=== PATIENT | female | born 1970 | race Caucasian/White ===

== ENCOUNTER → 2019-10-29 11:10 | Outpatient (BNVA) | payer OTHER, SELFPAY | PROVIDERS: Family Provider Family Medicine; PCP Registered Nurse; Referring Provider Registered Nurse; Visit Provider Specialist | DX: M25.562 Pain in left knee (principal) | CPT/HCPCS: 73560; 73565 ==

== ENCOUNTER 2019-12-07 12:38 | Outpatient (CLI) | payer OTHER, SELFPAY ==
--- NOTE | 2019-12-07 12:49 | MR_ITS ---
WS: [id number] MRI of the left knee, 12/07/2019 Clinical Data: LEFT KNEE PAIN Comparison: None. Findings: The examination was done with and without interarticular gadolinium contrast. The anterior and posterior cruciate ligaments are intact without tear. The medial and lateral meniscu s show no tears. There are no bone bruises present. There are no osteochondral fractures. The medial and lateral collateral ligaments are intact without strain or tear. The quadriceps tendon and patellar tendon show no abnormalities. The patella is intact without displacement or chondromalac ia. No Ferrell's cyst is seen. MR/MR knee LT wo/w con [id number] Impression: 1. Negative for ligamentous or meniscal tears. 2. Negative for bone bruise or osteochondral fracture.
--- NOTE | 2019-12-07 12:55 | IR_ITS ---
WS: [id number] Injection of gadolinium for MRI of the left knee, 12/07/2019 Clinical Data: PAIN IN LEFT KNEE Comparison: Left knee, 10/29/2019 Fluoroscopy time: 0.1 minutes. Findings: With the usual technique the medial aspect of the left knee was cleansed with iodine. Then a 30-gauge needle was used to infiltrate the skin of the medial knee with 5 mL of 1% lidocaine. Then a 20-gauge needle was utilized to inject 2 mL of Omnipaque into the left knee joint. Then 30 mL of a mixture of gadolinium and saline were injected to fill the joint space. IR/[place] [id number] Impression: Satisfactory injection of mixture of gadolinium and saline to fill the left kne e joint.
[2019-12-07] MEDS: iohexol 240 mg/mL 50 mL Btl INTRA-ARTI (14:04)
== END 2019-12-07 12:39 | disposition home or self-care (01) ==
LOC: RADWPI 12:45
PROVIDERS: Family Provider Family Medicine; PCP Registered Nurse; Visit Provider Specialist
DX: M25.562 Pain in left knee (principal)
CPT/HCPCS: 27369; 73723; 77002; A9579

== ENCOUNTER 2019-12-25 11:05 | Outpatient (CLI) | payer OTHER, SELFPAY ==
[2019-12-25 11:44] LABS: Basophils % 0.3 %; Eosinophils # 0.1 10^3/uL (0.0-0.8); Eosinophils % 1.7 %; Hemoglobin 15.2 g/dL (11.5-15.3); Lymphocytes # 3.2 10^3/uL (0.8-4.8); Lymphocytes % 45.3 %; Mean Corpuscular Hemoglobin 30.8 pg (28.0-34.0); Mean Corpuscular Volume 93.3 fL (81-99); Mean Platelet Volume 9.3 fL (7.4-10.4); Monocytes # 0.6 10^3/uL (0.2-0.9); Monocytes % 7.9 %; Neutrophils # 3.2 10^3/uL (1.8-7.7); Neutrophils % 44.7 %; Nucleated Red Blood Cells % 0 %; Platelet Count 221 10^3/cmm (130-400); Red Blood Count 4.93 10^6/uL (4.1-5.3); Red Cell Distribution Width 12.5 % (12.1-15.1); White Blood Count 7.1 10^3/uL (4.0-10.0)
[2019-12-25 12:03] LABS: C Reactive Protein 1.9 mg/L (0.0-4.9); Glomerular Filtration Rate 76.9 mL/min (90-130)
[2019-12-25 12:30] LABS: Erythrocyte Sedimentation Rate 11 mm/hr (0-15)
[2019-12-25 12:33] LABS: Hepatitis A Antibody IgM. Non-Reactive (Nonreactive); Hepatitis B Surface AB. 5.4 (0-8.5); Hepatitis B Surface Antigen. Non-Reactive (Nonreactive); Hepatitis C Virus Antibody Non-Reactive (Nonreactive)
== END 2019-12-25 11:06 | disposition home or self-care (01) ==
LOC: LAB 11:08
PROVIDERS: Family Provider Family Medicine; PCP Registered Nurse; Visit Provider Specialist
DX: M19.90 Unspecified osteoarthritis, unspecified site (principal)
CPT/HCPCS: 82565; 85025; 85651; 86140; 86431; 86705; 86706; 86709; 86803; 87340

== ENCOUNTER → 2020-08-26 11:46 | Outpatient (BNVA) | payer SELFPAY | PROVIDERS: Family Provider Family Medicine; PCP Registered Nurse | DX: R35.0 Frequency of micturition (principal); N39.0 Urinary tract infection, site not specified; R31.9 Hematuria, unspecified | CPT/HCPCS: 81000 ==

== ENCOUNTER 2021-03-10 09:03 | Outpatient (CLI) | payer OTHER, SELFPAY ==
[2021-03-10 09:31] LABS: Add Urine Microscopic? NO; Charge for UA Resulting for Rev
[2021-03-10 10:08] LABS: Bilirubin Urine Neg (Negative); Blood Urine Neg (Negative); Glucose Urine UA 4+ (Normal); Ketones Urine Negative (Negative); Leukocyte Esterase Urine Negative (Negative); Nitrate Urine Negative (Negative); Protein Urine Neg (Negative); Specific Gravity, Urine 1.015 (1.005-1.030); Urine Appearance Clear (CLEAR); Urine Color Yellow (Yellow); Urobilinogen Urine Norm (Negative); pH Urine 5 (5-7)
[2021-03-10 10:15] LABS: Alanine Aminotransferase 93 U/L (0-33); Albumin Level 3.9 g/dL (3.5-5.2); Alkaline Phosphatase 82 IU/L (35-105); Anion Gap 13.8 (5-19); Aspartate Amino Transferase 101 U/L (0-32); Blood Urea Nitrogen 12 mg/dL (6-20); Calcium 8.7 mg/dL (8.5-10.5); Carbon Dioxide 26 mmol/L (22-29); Chloride 97 mmol/L (98-107); Globulin 2.5 g/dL (1.3-4.6); Glomerular Filtration Rate 89.3 mL/min (90-130); Glucose 367 mg/dL (65-115); Osmolality Calculated 291 mOsm/kg (285-295); Potassium 3.8 mmol/L (3.5-5.1); Sodium 133 mmol/L (136-145); T3 Free 2.2 PG/ML (2.0-4.4); Thyroid Stimulating Hormone 9.25 uIU/mL (0.27-4.20); Total Bilirubin 0.6 mg/dL (0.15-1.2); Total Protein 6.4 g/dL (6.6-8.7)
[2021-03-11 07:53] LABS: T4 Total 5.3 mcg/dL (5.1-11.9)
== END 2021-03-10 09:04 | disposition home or self-care (01) ==
LOC: LAB 09:06
PROVIDERS: PCP Registered Nurse; Visit Provider Family Medicine
DX: E11.9 Type 2 diabetes mellitus without complications (principal); E03.9 Hypothyroidism, unspecified
CPT/HCPCS: 36415; 80053; 81003; 84436; 84443; 84481

== ENCOUNTER → 2021-07-17 10:59 | Outpatient (BNVA) | payer OTHER, SELFPAY | PROVIDERS: PCP Registered Nurse; Referring Provider Nurse Practitioner; Visit Provider Internal Medicine | DX: E11.42 Type 2 diabetes mellitus with diabetic polyneuropathy (principal); E03.9 Hypothyroidism, unspecified; E66.9 Obesity, unspecified; Z68.36 Body mass index [BMI] 36.0-36.9, adult; Z79.84 Long term (current) use of oral hypoglycemic drugs | CPT/HCPCS: 99204 ==

== ENCOUNTER → 2021-07-20 08:06 | Outpatient (BNVA) | payer BC, SELFPAY | PROVIDERS: PCP Registered Nurse; Referring Provider Registered Nurse; Visit Provider Specialist | DX: G56.22 Lesion of ulnar nerve, left upper limb (principal); R20.0 Anesthesia of skin; Z87.891 Personal history of nicotine dependence | CPT/HCPCS: 95908 ==

== ENCOUNTER → 2021-07-22 11:43 | Outpatient (BNVA) | payer BC, SELFPAY | PROVIDERS: PCP Registered Nurse; Visit Provider Nurse Practitioner Family | DX: Z20.822 Contact with and (suspected) exposure to COVID-19 (principal) | CPT/HCPCS: 87426 ==

== ENCOUNTER 2021-09-25 11:49 | Outpatient (CLI) | payer BC, SELFPAY ==
[2021-09-25 12:57] LABS: Cortisol Random 9.68 ug/dL (2.47-19.5)
[2021-09-25 12:58] LABS: Free T4 Free Thyroxine 1.17 ng/dL (0.82-1.77); Thyroid Stimulating Hormone 1.24 uIU/mL (0.27-4.20)
[2021-09-25 12:59] LABS: Estmated Average Glucose 298
== END 2021-09-25 11:50 | disposition home or self-care (01) ==
LOC: LAB 11:53
PROVIDERS: PCP Registered Nurse; Visit Provider Internal Medicine
DX: E03.9 Hypothyroidism, unspecified (principal); E11.42 Type 2 diabetes mellitus with diabetic polyneuropathy; R63.5 Abnormal weight gain
CPT/HCPCS: 82533; 83036; 84439; 84443

== ENCOUNTER 2021-12-31 12:01 | Outpatient (CLI) | payer OTHER, SELFPAY ==
[2021-12-31 12:53] LABS: Estmated Average Glucose 169; Hemoglobin A1C 7.5 % (4.0-6.0)
[2021-12-31 13:16] LABS: Alanine Aminotransferase 27 U/L (0-33); Albumin Level 4.3 g/dL (3.5-5.2); Alkaline Phosphatase 57 IU/L (35-105); Anion Gap 14.2 (5-19); Aspartate Amino Transferase 26 U/L (0-32); Blood Urea Nitrogen 12 mg/dL (6-20); Calcium 9.4 mg/dL (8.5-10.5); Carbon Dioxide 27 mmol/L (22-29); Chloride 102 mmol/L (98-107); Chol HDL Ratio 3.31 mg/dL (0.0-4.40); Cholesterol 149 mg/dL (0-200); Globulin 2.1 g/dL (1.3-4.6); Glomerular Filtration Rate 88.9 mL/min (90-130); Glucose 101 mg/dL (65-115); HDL Cholesterol 45 mg/dL (60-100); LDL Cholesterol Calculated 81 mg/dL (50-129); Osmolality Calculated 288 mOsm/kg (285-295); Potassium 4.2 mmol/L (3.5-5.1); Sodium 139 mmol/L (136-145); Thyroid Stimulating Hormone 0.79 uIU/mL (0.27-4.20); Total Bilirubin 0.5 mg/dL (0.15-1.2); Total Protein 6.4 g/dL (6.6-8.7); Triglycerides 115 mg/dL (0-150)
[2021-12-31 13:17] LABS: Free T4 Free Thyroxine 1.18 ng/dL (0.82-1.77)
== END 2021-12-31 12:02 | disposition home or self-care (01) ==
LOC: LAB 12:13
PROVIDERS: PCP Registered Nurse; Visit Provider Internal Medicine
DX: E03.9 Hypothyroidism, unspecified (principal); E11.42 Type 2 diabetes mellitus with diabetic polyneuropathy
CPT/HCPCS: 80053; 80061; 83036; 84439; 84443

== ENCOUNTER 2022-11-16 14:02 | Outpatient (CLI) | payer OTHER, SELFPAY ==
--- NOTE | 2022-11-16 14:19 | MM_ITS ---
WS: [id number] BILATERAL 3D TOMOSYNTHESIS DIGITAL SCREENING MAMMOGRAPHY WITH CAD CLINICAL INFORMATION: SCREENING HISTORY: Screening mammogram. No current complaints. COMPARISON: TECHNIQUE: Bilateral CC and MLO views. FINDINGS: The breasts are composed of heterogeneous fibroglandular density tissue, which can limit the detectio n of small underlying mass lesions. No suspicious mass, asymmetry, calcifications, or architectural d istortion. No evidence of malignancy. Incidental punctate and lucent centered calcifications. MM/[place] [id number] IMPRESSION: BI-RADS: 2-Benign FOLLOW UP: 1 Year Follow-up Recommend return to annual screening mammography.
== END 2022-11-16 14:03 | disposition home or self-care (01) ==
PROVIDERS: PCP Registered Nurse; Visit Provider Nurse Practitioner
DX: Z12.31 Encounter for screening mammogram for malignant neoplasm of breast (principal)
CPT/HCPCS: 77063; 77067

== ENCOUNTER → 2023-12-14 08:52 | Outpatient (BNVA) | payer OTHER, SELFPAY | PROVIDERS: PCP Registered Nurse; Referring Provider Nurse Practitioner; Visit Provider Surgery | DX: Z12.11 Encounter for screening for malignant neoplasm of colon (principal) | CPT/HCPCS: 99203; 99214 ==

== ENCOUNTER 2024-02-09 09:16 | Outpatient (CLI) | payer OTHER, SELFPAY ==
--- NOTE | 2024-02-09 09:30 | MM_ITS ---
WS: [id number] Bilateral screening 3D tomosynthesis digital mammogram, 02/09/2024 Clinical Data: SCREENING Comparison: 11/16/2022, 10/14/2016. Findings: The breast parenchymal pattern shows heterogeneous density. No spiculated masses or clustered calcifi cations are seen. There are no secondary signs of carcinoma. There are benign calcifications in both breasts. MM/[place] [id number] Impression: 1. Negative bilateral mammogram unchanged. 2. Recommend annual screening mammograms. BIRADS: 1-Negative FOLLOW UP: 1 Year Follow-up The CAD repairer and checker was used.
== END 2024-02-09 09:17 | disposition home or self-care (01) ==
LOC: RAD 09:16
PROVIDERS: PCP Registered Nurse; Visit Provider Nurse Practitioner
DX: Z12.31 Encounter for screening mammogram for malignant neoplasm of breast (principal); R92.333 Mammographic heterogeneous density, bilateral breasts; R92.1 Mammographic calcification found on diagnostic imaging of breast
CPT/HCPCS: 77063; 77067

== ENCOUNTER → 2024-02-29 11:36 | Outpatient (BNVA) | payer OTHER, SELFPAY | PROVIDERS: PCP Registered Nurse; Referring Provider Nurse Practitioner; Visit Provider Internal Medicine | DX: E11.42 Type 2 diabetes mellitus with diabetic polyneuropathy (principal); E03.9 Hypothyroidism, unspecified; E66.9 Obesity, unspecified | CPT/HCPCS: 36415; 80053; 80061; 82044; 83036; 84439; 84443 ==

== ENCOUNTER → 2024-03-21 10:00 | Outpatient (BNVA) | payer OTHER, SELFPAY | PROVIDERS: PCP Registered Nurse; Referring Provider Nurse Practitioner; Visit Provider Nurse Practitioner | DX: M25.511 Pain in right shoulder (principal); G89.29 Other chronic pain; R29.898 Other symptoms and signs involving the musculoskeletal system; M19.011 Primary osteoarthritis, right shoulder | CPT/HCPCS: 73030; 99204 ==

== ENCOUNTER 2024-04-24 11:29 | Day surgery (SDC) | payer OTHER, SELFPAY ==
[2024-04-24] MEDS: sodium chloride 0.9% 1,000 ML 30 ML IV (11:53)
[2024-04-24 11:55] VITALS: BP 115/69; PULSE 68; RESP 18; TEMP 36.3; O2SAT 95
[2024-04-24 11:56] VITALS: BMI 32.8
--- NOTE | 2024-04-24 12:11 | ANES.PREANE2 ---
Pre-Anesthetic Assessment Height/Weight: Height 1.6 m Weight 83.915 kg Temp Pulse Resp BP Pulse Ox O2 Del Method 97.3 F L 68 18 115/69 95 Room Air 04/24/24 11:55 04/24/24 11:55 04/24/24 11:55 04/24/24 11:55 04/24/24 11:55 04/24/24 11:55 Preop Diagnosis: screening Operation Date: 04/24/24 12:35 Proposed Procedures p Colonoscopy 90016, G0121, Z12.11(Not Applicable) - Benjamin Alarcon MD Was Beta Randall taken within 24 hours: N/A Was Clonidine taken within 24 hours: N/A Last intake: Intake Last Liquid Date 04/23/24 Last Liquid Time 23:30 Last Solid Date 04/22/24 Social No alcohol and No tobacco Exam alert and oriented x 3 Airway Submandibular: within normal limits Cervical ROM: within normal limits Mallampati: Class II Dentition: full History/ROS No significant history except as noted Pulmonary Sleep Apnea (does not use CPAP) CV/HEM None reported None reported Hepatic None reported GI Gastroesophageal Reflux Disease Metabolic Diabetes Mellitus and Thyroid Disease [facility] [place] Osteoarthritis/DJD Neuropsych Anxiety and Depression Anesthetic Plan ASA status: 3 Anesthesia: MAC Risk of > 500 ml blood loss (7ml/kg in children): No Medications/Allergies Home Medications Medication Instructions Recorded Confirmed Last Taken Type epinephrine 0.3 mg/0.3 mL 0.3 ml SUBCUT PRN 10/29/19 04/24/24 Unknown History injection, auto-injector metformin 1,000 mg tablet 1,000 mg PO BID 10/29/19 04/19/24 04/23/24 History atorvastatin 40 mg tablet 40 mg PO DAILY 09/28/21 04/19/24 04/24/24 History buspirone 10 mg tablet 15 mg PO DAILY 09/28/21 04/19/24 04/23/24 History citalopram 20 mg tablet 40 mg PO DAILY 09/28/21 04/19/24 04/23/24 History empagliflozin 25 mg tablet 25 mg PO DAILY #180 tabs 01/04/22 04/19/24 04/23/24 Rx (Jardiance) esomeprazole magnesium 20 mg 20 mg PO DAILY PRN Heartburn 12/14/23 04/19/24 04/19/24 History capsule,delayed release (Nexium) levothyroxine 112 mcg tablet 112 mcg PO DAILY #90 tabs 02/29/24 04/19/24 04/24/24 Rx semaglutide 1 mg/dose (4 mg/3 mL) 1 mg (0.75 mL) SUBCUT Q7D #3 mL 02/29/24 04/19/24 04/16/24 Rx subcutaneous pen injector (Ozempic) semaglutide 2 mg/dose (8 mg/3 mL) 2 mg (0.75 mL) SUBCUT Q7D #3 mL 02/29/24 04/24/24 Unknown Rx subcutaneous pen injector (Ozempic) prazosin 2 mg capsule 2 mg PO QPM 04/19/24 04/19/24 04/23/24 History tizanidine 4 mg tablet 2 mg PO DAILY PRN insomina 04/19/24 04/19/24 04/18/24 History trazodone 100 mg tablet 50 mg PO DAILY 04/19/24 04/19/24 04/23/24 History Allergies Allergy/AdvReac Type Severity Reaction Status Date / Time Alpha-Gal Allergy Severe Unknown Verified 04/24/24 12:12 (Zfouqjdwo-Yuufl-2,3-Gala Current Medications Generic Name Dose Route Start Last Admin Trade Name Freq PRN Reason Stop Dose Admin Sodium Chloride 1,000 mls @ 30 mls/hr 04/24/24 11:45 04/24/24 11:53 Sodium Chloride 0.9% IV 04/25/24 11:44 30 mls/hr .Q24H ROSIO Administration PFSH Anesthesia Medical History (Updated 03/25/24 @ 21:40 by MARIBELL Sanchez) Rotator cuff arthropathy of right shoulder Arthritis of right acromioclavicular joint Weakness of right shoulder Chronic right shoulder pain 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 Hypothyroid Surgical History Hx of hysterectomy Hx of section History of bilateral carpal tunnel release Family History Family/Other Heart disease Psychiatric illness Diabetes Denies family history of CAD (coronary artery disease) Clotting disorder Dementia Hyperlipidemia Chronic kidney disease (CKD) Suicide Anesthesia complication Bleeding disorder Family history of premature coronary artery disease Lung disease Cancer Hypertension Stroke Social History Smoking and tobacco/nicotine status: former use of tobacco/nicotine Alcohol intake: current Alcohol intake frequency: few times a month Substance/Drug Use: never Current occupational status: employed Data Anesthesia Cardiac Studies: No Data to Display
--- NOTE | 2024-04-24 12:12 | W.PM.OPSFHP ---
Same Day Surgery H&P Indication for Procedure/HPI DATE OF PROCEDURE: April 24, 2024 CHIEF COMPLAINT/INDICATIONFOR SURGICAL PROCEDURE: need for screening colonosopy PREOP DIAGNOSIS: need for screening colonoscopy PLANNED PROCEDURE: Operation Date: 04/24/24 12:35 Proposed Procedures p Colonoscopy 76951, G0121, Z12.11(Not Applicable) - Benjamin Alarcon MD Medications/Allergies* Home Medications Medication Instructions Recorded Confirmed Type epinephrine 0.3 mg/0.3 mL 0.3 ml SUBCUT PRN 10/29/19 04/24/24 History injection, auto-injector metformin 1,000 mg tablet 1,000 mg PO BID 10/29/19 04/19/24 History atorvastatin 40 mg tablet 40 mg PO DAILY 09/28/21 04/19/24 History buspirone 10 mg tablet 15 mg PO DAILY 09/28/21 04/19/24 History citalopram 20 mg tablet 40 mg PO DAILY 09/28/21 04/19/24 History esomeprazole magnesium 20 mg 20 mg PO DAILY PRN Heartburn 12/14/23 04/19/24 History capsule,delayed release (Nexium) prazosin 2 mg capsule 2 mg PO QPM 04/19/24 04/19/24 History tizanidine 4 mg tablet 2 mg PO DAILY PRN insomina 04/19/24 04/19/24 History trazodone 100 mg tablet 50 mg PO DAILY 04/19/24 04/19/24 History Allergies/Adverse Reactions Allergy/AdvReac Type Severity Reaction Status Date / Time Alpha-Gal Allergy Severe Unknown Verified 04/24/24 12:12 (Mzlqzbxje-Mxdzm-3,3-Gala Current Medications: Generic Name Dose Route Start Last Admin Trade Name Freq PRN Reason Stop Dose Admin Sodium Chloride 1,000 mls @ 30 mls/hr 04/24/24 11:45 04/24/24 11:53 Sodium Chloride 0.9% IV 04/25/24 11:44 30 mls/hr .Q24H ROSIO Administration Pertinent History/Comorbid Conditions* Medical History (Updated 03/25/24 @ 21:40 by MARIBELL Sanchez) Rotator cuff arthropathy of right shoulder Arthritis of right acromioclavicular joint Weakness of right shoulder Chronic right shoulder pain 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 Hypothyroid Surgical History (Updated 07/19/21 @ 19:08 by Angel Prado MD) Hx of hysterectomy Hx of section History of bilateral carpal tunnel release Family History (Updated 10/29/19 @ 11:52 by Jacquelin Arora LPN) Diabetes Family/Other Heart disease Family/Other Psychiatric illness Family/Other Denies family history of CAD (coronary artery disease) Clotting disorder Dementia Hyperlipidemia Chronic kidney disease (CKD) Suicide Anesthesia complication Bleeding disorder Family history of premature coronary artery disease Lung disease Cancer Hypertension Stroke Social History Smoking and tobacco/nicotine status: former use of tobacco/nicotine Alcohol intake: current Alcohol intake frequency: few times a month Substance/Drug Use: never Current occupational status: employed Pertinent Exam Findings alert, oriented x 3, clear to auscultation bilaterally and regular rate & rhythm Recommendations Surgery/Procedure today Coding Level of Care Code Acute Code for Chg Giacomo
[2024-04-24 12:15] LABS: Glucose Point of Care 113 mg/dL (70-110)
[2024-04-24 13:05] VITALS: BP 107/64; PULSE 63; RESP 20; TEMP 36.1; O2SAT 93
[2024-04-24 13:15] VITALS: BP 100/61; PULSE 60; RESP 20; O2SAT 98
[2024-04-24 13:20] VITALS: BP 100/58; PULSE 61; RESP 20; O2SAT 98
[2024-04-24 13:25] VITALS: BP 103/60; PULSE 59; RESP 20; O2SAT 98
[2024-04-24 13:33] VITALS: BP 109/63; PULSE 64; RESP 20; O2SAT 100
--- NOTE | 2024-04-24 15:11 | ANE.PACU2 ---
Inpatient post-anesthesia follow up: Airway intact: Yes Vital signs: Temperature 97.0 F Pulse Rate 64 Respiratory Rate 20 Blood Pressure 109/63 Pulse Oximetry 100 Oxygen Delivery Me thod Room Air Oxygen Flow Rate Fraction of Inspir ed Oxygen Hydration adequate: Yes Nausea and vomiting: No Pain level: 2 Mental status: Baseline
== END 2024-04-24 13:45 | disposition home or self-care (01) ==
PROVIDERS: PCP Nurse Practitioner; Visit Provider Surgery
PROC: 0DJD8ZZ Inspection of Lower Intestinal Tract, Via Natural or Artificial Opening Endoscopic (ICD-10-PCS; CPT 45378; principal; 2024-04-24 12:35)
DX: Z12.11 Encounter for screening for malignant neoplasm of colon (principal); D12.3 Benign neoplasm of transverse colon; Z79.84 Long term (current) use of oral hypoglycemic drugs; E11.42 Type 2 diabetes mellitus with diabetic polyneuropathy; E03.9 Hypothyroidism, unspecified; Z87.891 Personal history of nicotine dependence; G47.30 Sleep apnea, unspecified; K21.9 Gastro-esophageal reflux disease without esophagitis
CPT/HCPCS: 36416; 45385; 82962; 88305; J2704; J7030

== ENCOUNTER 2024-04-30 11:34 | Outpatient (CLI) | payer OTHER, SELFPAY ==
--- NOTE | 2024-04-30 11:45 | MR_ITS ---
WS: [id number] MRI RIGHT SHOULDER HISTORY: right shoulder pain COMPARISON: Radiographs 03/21/2024 TECHNIQUE: Multiplanar sequences of the shoulder joint are submitted. Fluid at the AC joint consistent with partial tear to the capsule. Mild AC joint arthropathy otherwis e. No significant fluid in the subacromial-subdeltoid bursa. No os acromion. Thickening and increased T2 signal in the coracohumeral ligament. Mild atrophy of the supraspinatus muscle but no edema. Focal tendinopathy in the central distal supra spinatus tendon. Tendinopathy is at and just distal to the subacromial impingement. There is a very subtle tear within the superior labrum which is extending just slightly anterior. The re is a small amount of fluid adjacent to the inferior glenohumeral ligament. The axillary pouch does not appear thickened. MR/MR shoulder RT wo con* [id number] IMPRESSION: 1. Mild thickening and edema within the coracohumeral ligament. Consider adhes layo capsulitis. 2. Tendinopathy in the distal supraspinatus tendon but no tear. 3. Superior labral tear. Labral tear is extending just slightly anterior. 4. Mild AC joint arthropathy with fluid in the joint space.
== END 2024-04-30 11:35 | disposition home or self-care (01) ==
LOC: RAD 11:34
PROVIDERS: PCP Nurse Practitioner; Visit Provider Nurse Practitioner
DX: M25.511 Pain in right shoulder (principal); G89.29 Other chronic pain; R29.898 Other symptoms and signs involving the musculoskeletal system; M19.011 Primary osteoarthritis, right shoulder; S43.431A Superior glenoid labrum lesion of right shoulder, initial encounter; X58.XXXA Exposure to other specified factors, initial encounter; M67.813 Other specified disorders of tendon, right shoulder
CPT/HCPCS: 73221

== ENCOUNTER → 2024-06-04 12:59 | Outpatient (BNVA) | payer OTHER, SELFPAY | PROVIDERS: PCP Nurse Practitioner; Visit Provider Nurse Practitioner | DX: M19.011 Primary osteoarthritis, right shoulder (principal); R29.898 Other symptoms and signs involving the musculoskeletal system; S43.431A Superior glenoid labrum lesion of right shoulder, initial encounter; X58.XXXA Exposure to other specified factors, initial encounter | CPT/HCPCS: 20610; 99214; J1100; J2795; J3301 ==

== ENCOUNTER → 2024-08-13 13:09 | Outpatient (BNVA) | payer OTHER, SELFPAY | PROVIDERS: PCP Nurse Practitioner; Visit Provider Nurse Practitioner | DX: Z01.818 Encounter for other preprocedural examination (principal) | CPT/HCPCS: 36415; 80053; 81001; 85025; 99214 ==

== ENCOUNTER → 2024-08-28 08:55 | Outpatient (BNVA) | payer OTHER, SELFPAY | PROVIDERS: PCP Nurse Practitioner; Visit Provider Family Medicine | DX: Z01.818 Encounter for other preprocedural examination (principal) | CPT/HCPCS: 93005 ==

== ENCOUNTER 2024-09-04 09:02 | Day surgery (SDC) | payer OTHER, SELFPAY ==
[2024-09-04] VITALS (20 sets, daily range): BP systolic 95–113; BP diastolic 59–77; PULSE 64–88; RESP 14–18; TEMP 36.1–36.6; O2SAT 90–97; BMI 30.9
[2024-09-04 09:47] LABS: Glucose Point of Care 150 mg/dL (70-110)
[2024-09-04] MEDS: scopolamine 1.5 Patch 1 PATCH TRANSDERMA (09:47)
[2024-09-04] MEDS: sodium chloride 0.9% 1,000 ML 30 ML IV (09:47)
[2024-09-04] MEDS: acetaminophen 1,000 MG/100 ML PIGGYBACK 400 MG IV (09:52)
[2024-09-04] MEDS: midazolam 1 mg/mL INJ 2 mL 2 MG IVP (10:48)
--- NOTE | 2024-09-04 11:02 | ANES.PREANE2 ---
Pre-Anesthetic Assessment Height/Weight: Height 1.6 m Weight 79.379 kg Temp Pulse Resp BP Pulse Ox O2 Del Method 97.0 F L 69 18 113/77 97 Room Air 09/04/24 09:27 09/04/24 09:27 09/04/24 09:27 09/04/24 09:27 09/04/24 09:27 09/04/24 09:27 Operation Date: 09/04/24 11:30 Proposed Procedures p OPEN DISTAL CLAVICLE RESECTION(Right) - Ana Toledo MD s Acromioplasty(Right) - Ana Toledo MD Familial anesthetic complications: None Was Beta Randall taken within 24 hours: N/A Was Clonidine taken within 24 hours: N/A Last intake: Intake Last Liquid Date 09/03/24 Last Liquid Time 19:30 Last Solid Date 09/03/24 Last Solid Time 19:30 Social No alcohol and No tobacco Exam alert, oriented x 3, clear to auscultation bilaterally and regular rate & rhythm Airway Mallampati: Class III Dentition: full Comments: Comments: Large neck circumference, excess submandibular tissue GI Gastroesophageal Reflux Disease Metabolic Diabetes Mellitus, Morbid Obesity and Thyroid Disease Anesthetic Plan ASA status: 3 Anesthesia: General and Regional (specify below) Risk of > 500 ml blood loss (7ml/kg in children): No Medications/Allergies Home Medications Medication Instructions Recorded Confirmed Last Taken Type epinephrine 0.3 mg/0.3 mL 0.3 ml SUBCUT PRN 10/29/19 09/04/24 Unknown History injection, auto-injector metformin 1,000 mg tablet 1,000 mg PO BID 10/29/19 09/04/24 09/01/24 History atorvastatin 40 mg tablet 40 mg PO DAILY 09/28/21 09/04/24 09/03/24 History buspirone 10 mg tablet 15 mg PO DAILY 09/28/21 09/04/24 09/03/24 History citalopram 20 mg tablet 40 mg PO DAILY 09/28/21 09/04/24 09/03/24 History empagliflozin 25 mg tablet 25 mg PO DAILY #180 tabs 01/04/22 09/04/24 08/29/24 Rx (Jardiance) esomeprazole magnesium 20 mg 20 mg PO DAILY PRN Heartburn 12/14/23 09/04/24 09/03/24 History capsule,delayed release (Nexium) levothyroxine 112 mcg tablet 112 mcg PO DAILY #90 tabs 02/29/24 09/04/24 09/03/24 Rx semaglutide 2 mg/dose (8 mg/3 mL) 2 mg (0.75 mL) SUBCUT Q7D #3 mL 02/29/24 09/04/24 08/24/24 Rx subcutaneous pen injector (Ozempic) prazosin 2 mg capsule 2 mg PO QPM 04/19/24 09/04/24 09/03/24 History tizanidine 4 mg tablet 2 mg PO DAILY PRN insomina 04/19/24 09/04/24 09/03/24 History trazodone 100 mg tablet 50 mg PO DAILY 04/19/24 09/04/24 09/03/24 History Allergies Allergy/AdvReac Type Severity Reaction Status Date / Time Alpha-Gal Allergy Severe Unknown Verified 09/04/24 09:23 (Uuhqzqsjx-Tdeii-1,3-Gala Current Medications Generic Name Dose Route Start Last Admin Trade Name Freq PRN Reason Stop Dose Admin Sodium Chloride 1,000 mls @ 30 mls/hr 09/04/24 09:30 09/04/24 09:47 Sodium Chloride 0.9% IV 09/05/24 09:29 30 mls/hr .Q24H ROSIO Administration Midazolam HCl 2 mg 09/04/24 09:20 09/04/24 10:48 Midazolam 1 Mg/Ml Inj 2 Ml IVP 2 mg Q5M PRN Administration Preop Anxiety PFSH Anesthesia Medical History Rotator cuff arthropathy of right shoulder Arthritis of right acromioclavicular joint Weakness of right shoulder Chronic right shoulder pain 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 Hypothyroid Surgical History Hx of hysterectomy Hx of section History of bilateral carpal tunnel release Family History Family/Other Heart disease Psychiatric illness Diabetes Denies family history of CAD (coronary artery disease) Clotting disorder Dementia Hyperlipidemia Chronic kidney disease (CKD) Suicide Anesthesia complication Bleeding disorder Family history of premature coronary artery disease Lung disease Cancer Hypertension Stroke Social History Smoking and tobacco/nicotine status: never used tobacco/nicotine Alcohol intake: current Alcohol intake frequency: few times a month Substance/Drug Use: never Current occupational status: employed Data Anesthesia Cardiac Studies: No Data to Display
--- NOTE | 2024-09-04 11:03 | ANES.PROC ---
Anesthesia Procedures Procedure/Date: 09/04/24 Nerve Block ^: Nerve Block 1: Main Anesthesia: general anesthesia Time Out Performed: Yes Consent: requested by attending/covering physician, from patient, from other, risks and benefits reviewed and patient agrees to proceed Nerve block location: interscalene (R) Anesthesia monitors applied: pulse oximetry, EKG, BP cuff and oxygen Nerve block position: semi sitting Anesthetic Used: ropivicaine 0.5% (25 ml) and with decadron (4 mg) Ultrasound used to: recognize landmarks and visualize and ID interscalene groove Nerve Stimulator Used?: No Interscalene/Femoral BLK: 2 stimuplex 22 g needle used for position and inplane approach, visualize local anesthetic spread and no vascular puncture identified Injection: neg aspiration of heme Patient Tolerated Procedure: well
--- NOTE | 2024-09-04 12:19 | W.PM.OPSUD ---
Surgery/Procedure H&P Update DATE OF PROCEDURE: September 04, 2024 DATE H&P PERFORMED: 08/13/24 H&P UPDATE INFORMATION: I have reviewed H&P completed within last 30 days, I have examined patient prior to procedure, No changes to prior documentation and H&P is in [facility] EMR on date indicated PRIMARY INDICATION FOR PROCEDURE: Right rotator cuff arthropathy with acromioclavicular joint osteoarthritis and impingement PLANNED PROCEDURE: Operation Date: 09/04/24 11:30 Proposed Procedures p OPEN DISTAL CLAVICLE RESECTION(Right) - Ana Toledo MD s Acromioplasty(Right) - Ana Toledo MD Related Problem List Diagnoses (1) Rotator cuff arthropathy of right shoulder: (2) Arthritis of right acromioclavicular joint: (3) Impingement of right shoulder:
[2024-09-04] MEDS: ceFAZolin 2,000 mg SDV 2000 MG IVP (13:15)
--- NOTE | 2024-09-04 14:28 | P.OP_ITS ---
Operative Report Date of procedure: September 04, 2024 Pre-op diagnosis: Significant degenerative osteoarthritis of the right acromioclavicular joint and severe impingement Post-op diagnosis: Significant degenerative osteoarthritis of the right acromioclavicular joint and severe impingement Post-op findings: Right shoulder impingement with significant degenerative osteoarthritis of the acromioclavicular joint Procedure done: Right shoulder acromioplasty, bursal debridement, and resection of distal clavicle Implants: None Specimens removed/disposition: None Pathology: None Surgeon: Ana Toledo MD Registered Health Nurse: Aditi Causey, nurse practitioner, who services were required for retraction, exposure, and completion of the surgical procedure Anesthesia: General (Intubated, ASA 3 with preoperative interscalene block) Estimated blood loss (mL): 50 IV fluids (mL): 600 Complications: None Findings: Significant impingement with aggravation of the rotator cuff consistent with tendinopathy. Significant degenerative osteoarthritis of the acromioclavicular joint Condition: stable Disposition: PACU (Then return to same-day surgery for discharge to home) Brief History: This 53-year-old woman presents today for distal clavicle resection and acromioplasty. Also, evaluation of the rotator cuff. The patient has been seen in the office. She was noted to have tendinopathy in the distal supraspinatus with no tear. She did have irregularity to the labrum. She also had acromioclavicular joint osteoarthritis. After discussion in the office, the patient wished to proceed with surgical intervention. She was unresponsive to formal physical therapy, injection therapy, anti-inflammatories, and activity modifications. Therefore, questions were answered and consents were signed in the office. Risks and complications were discussed. Procedure: The patient was brought to the operating theater and underwent general intubated anesthesia, ASA 3. The patient was placed in a beachchair position and subsequently the right upper extremity was prepped and draped in the usual fashion utilizing DuraPrep. The arm was draped free. A surgical pause was performed prior to commencement of the surgical procedure. At the time of the surgical pause, we confirmed the site and side of surgery as well as administration of appropriate preoperative antibiotics Ancef 2 g. MRI was also reviewed at that time. Following the surgical pause, an incision was made at approximately the level of the acromioclavicular joint extending across the anterolateral corner of the acromion and distally as necessary. Care was taken to avoid injury to the axillary nerve by limiting the distal extent of the incision. Dissection continued through skin and soft tissues using a scalpel. Hemostasis was obtained using electrocautery. Soft tissues were elevated off the acromion. An acromioplasty was then accomplished using a combination of a saw and a power rasp. With this, we were able to remove the significant compression caused by the acromion. The rotator cuff was then evaluated to look for tears. The shoulder was placed through further range of motion to assure there was no angelica dence of rotator cuff tear. There was no evidence of significant adhesive capsulitis with this manipulation procedure. The acromioclavicular joint was exposed. A saw was then used to resect the dis benjamin clavicle without difficulty. The undersurface of the clavicle was palpated and was slightly further debrided. A power rasp was used to further smooth the area. When this was felt to be adequately resected, the wound was irrigated. Attention was then directed to closure. The wound was irrigated and closure was accomplished with 0 Vicryl in the capsular tissues overlying the acromioclavicular joint area as well as over the acromion and down into the deltoid muscle. 2-0 Monocryl was used to close the subcutaneous tissues followed by 4-0 Monocryl subcuticular closure. This was followed by Dermabond, Steri-Strips, and OpSite. The patient was placed in a sling and was returned to the recovery room in satisfactory condition. The patient will be discharged to home to follow-up with me in the office. There were no complications and no specimens. Related Problem List Diagnoses (1) Impingement of right shoulder: (2) Arthritis of right acromioclavicular joint:
[2024-09-04] MEDS: fentaNYL 50 mcg/mL INJ 2mL IVP ×2 (15:10→15:34)
--- NOTE | 2024-09-04 16:45 | ANE.PACU2 ---
Inpatient post-anesthesia follow up: Airway intact: Yes Vital signs: Temperature 97.8 F Pulse Rate 82 Respiratory Rate 16 Blood Pressure 111/74 Pulse Oximetry 94 Oxygen Delivery Me thod Room Air Oxygen Flow Rate 3 Fraction of Inspir ed Oxygen Hydration adequate: Yes Nausea and vomiting: No Pain level: 1 Mental status: Baseline
== END 2024-09-04 16:48 | disposition home or self-care (01) ==
PROVIDERS: PCP Nurse Practitioner; Visit Provider Specialist
PROC: (CPT 23120; principal; 2024-09-04 11:30)
PROC: (CPT 23130; 2024-09-04 11:30)
DX: M19.011 Primary osteoarthritis, right shoulder (principal); M25.811 Other specified joint disorders, right shoulder; K21.9 Gastro-esophageal reflux disease without esophagitis; E66.01 Morbid (severe) obesity due to excess calories; Z68.31 Body mass index [BMI] 31.0-31.9, adult; Z79.84 Long term (current) use of oral hypoglycemic drugs; E11.42 Type 2 diabetes mellitus with diabetic polyneuropathy; E03.9 Hypothyroidism, unspecified; Z87.891 Personal history of nicotine dependence
CPT/HCPCS: 23120; 23130; 36416; 82962; J0131; J0690; J1100; J2250; J2371; J2405; J2704; J2795; J3010; J3490; J7030

== ENCOUNTER → 2024-09-17 14:56 | Outpatient (BNVA) | payer OTHER, SELFPAY | PROVIDERS: PCP Nurse Practitioner; Visit Provider Specialist | DX: M25.811 Other specified joint disorders, right shoulder (principal); M19.011 Primary osteoarthritis, right shoulder; R29.898 Other symptoms and signs involving the musculoskeletal system | CPT/HCPCS: 99024 ==

== ENCOUNTER → 2024-10-01 09:07 | Outpatient (BNVA) | payer OTHER, SELFPAY | PROVIDERS: PCP Nurse Practitioner; Visit Provider Nurse Practitioner | DX: M25.811 Other specified joint disorders, right shoulder (principal); M25.511 Pain in right shoulder; G89.29 Other chronic pain; M19.012 Primary osteoarthritis, left shoulder; R29.898 Other symptoms and signs involving the musculoskeletal system | CPT/HCPCS: 20610; 73030; 99214; J1100; J2795; J3301 ==

== ENCOUNTER → 2024-10-15 08:13 | Outpatient (BNVA) | payer OTHER, SELFPAY | PROVIDERS: PCP Nurse Practitioner; Visit Provider Specialist | DX: M19.012 Primary osteoarthritis, left shoulder (principal); R29.898 Other symptoms and signs involving the musculoskeletal system; M25.811 Other specified joint disorders, right shoulder; M19.011 Primary osteoarthritis, right shoulder; M25.511 Pain in right shoulder; G89.29 Other chronic pain; Z98.890 Other specified postprocedural states | CPT/HCPCS: 99024 ==

== ENCOUNTER → 2025-01-04 09:44 | Outpatient (BNVA) | payer OTHER, SELFPAY | PROVIDERS: PCP Nurse Practitioner; Visit Provider Nurse Practitioner | DX: Z98.890 Other specified postprocedural states (principal) | CPT/HCPCS: 99213 ==

== ENCOUNTER → 2025-01-07 07:56 | Outpatient (BNVA) | payer OTHER, SELFPAY | PROVIDERS: PCP Nurse Practitioner; Visit Provider Nurse Practitioner | DX: M19.012 Primary osteoarthritis, left shoulder (principal); R29.898 Other symptoms and signs involving the musculoskeletal system | CPT/HCPCS: 99214 ==

== ENCOUNTER 2025-01-22 06:12 | Outpatient (CLI) | payer OTHER, SELFPAY ==
--- NOTE | 2025-01-22 06:30 | MR_ITS ---
WS: [id number] MRI LEFT SHOULDER HISTORY: Left shoulder pain. COMPARISON: Radiograph 10/01/2024 TECHNIQUE: Multiplanar sequences of the shoulder joint are submitted. Moderate AC joint arthritis. Small erosions and irregularity involving the distal clavicle with osteophytes. Mild osteophytic ridging of the acromion. AC joint osteophytes with mild encroachment upon the supraspinatus tendon. No significant subacromial or subdeltoid bursal fluid. No os acromion. Small caliber biceps tendon but it does appear to be appropriately positioned. Mildly high riding humeral head. Mild narrowing of the glenohumeral joint. No rotator cuff muscle atrophy or edema. No rotator cuff tear identified. Mild tendinopathy in the distal subscapularis tendon. There is a very small amount of fluid adjacent to the distal anteriormost subscapularis tendon. This fluid appears external to the tendon and may be fluid in the rotator cuff interval. No labral tear. Mild intrasubstance degeneration within the anterior labrum. Coracohumeral ligament is difficult to identify. No evidence for adhesive capsulitis. MR/MR shoulder LT wo con* [id number] IMPRESSION: 1. Moderate AC joint arthritis with mild encroachment upon the supraspinatus t endon. 2. No rotator cuff tear is identified. 3. No rotator cuff muscle atrophy or edema. 4. Small amount of fluid in the rotator cuff interval. 5. Mild tendinopathy in the distal subscapularis tendon. 6. No labral tear identified. Intrasubstance degeneration in the anterior labr um.
== END 2025-01-22 06:13 | disposition home or self-care (01) ==
PROVIDERS: PCP Nurse Practitioner; Visit Provider Nurse Practitioner
DX: R29.898 Other symptoms and signs involving the musculoskeletal system (principal); M19.012 Primary osteoarthritis, left shoulder; M67.814 Other specified disorders of tendon, left shoulder; R93.7 Abnormal findings on diagnostic imaging of other parts of musculoskeletal system; M25.712 Osteophyte, left shoulder
CPT/HCPCS: 73221

== ENCOUNTER → 2025-02-05 09:55 | Outpatient (BNVA) | payer OTHER, SELFPAY | PROVIDERS: PCP Nurse Practitioner; Visit Provider Internal Medicine | DX: E11.9 Type 2 diabetes mellitus without complications (principal); E03.9 Hypothyroidism, unspecified; E11.42 Type 2 diabetes mellitus with diabetic polyneuropathy; E66.9 Obesity, unspecified | CPT/HCPCS: 99214 ==

== ENCOUNTER → 2025-02-13 16:31 | Outpatient (BNVA) | payer OTHER, SELFPAY | PROVIDERS: PCP Nurse Practitioner; Visit Provider Nurse Practitioner | DX: M19.012 Primary osteoarthritis, left shoulder (principal) | CPT/HCPCS: 36415; 80053; 81001; 85025 ==

== ENCOUNTER → 2025-02-15 11:21 | Outpatient (BNVA) | payer OTHER, SELFPAY | PROVIDERS: PCP Nurse Practitioner; Visit Provider Family Medicine | DX: Z01.818 Encounter for other preprocedural examination (principal) | CPT/HCPCS: 93005 ==

== ENCOUNTER 2025-02-22 08:42 | Outpatient (CLI) | payer OTHER, SELFPAY ==
[2025-02-22 09:20] LABS: Bilirubin Urine Negative (Negative); Blood Urine Negative (Negative); Glucose Urine UA 3+ (Normal); Ketones Urine Negative (Negative); Leukocyte Esterase Urine 1+ (Negative); Nitrate Urine Negative (Negative); Protein Urine Negative (Negative); Specific Gravity, Urine 1.022 (1.005-1.030); Urine Appearance Cloudy (CLEAR); Urine Color Yellow (Yellow); pH Urine 5.5 (5-7)
[2025-02-22 09:25] LABS: Bacteria Urine 4+ /hpf; Hyaline Casts Urine 1.21 /lpf; RBC Urine 0-2 /hpf (0-2); Squamous Epithelial Cell Urine 0-5 /hpf (0-5); WBC Urine >100 /hpf (0-5)
[2025-02-22 09:35] LABS: Add Urine Culture? Yes
== END 2025-02-22 08:43 | disposition home or self-care (01) ==
LOC: LAB 08:49
PROVIDERS: PCP Nurse Practitioner; Visit Provider Family Medicine
DX: Z01.818 Encounter for other preprocedural examination (principal)
CPT/HCPCS: 81001; 87077; 87086; 87186

== ENCOUNTER 2025-02-25 07:31 | Day surgery (SDC) | payer OTHER, SELFPAY ==
[2025-02-25] VITALS (12 sets, daily range): BP systolic 108–142; BP diastolic 55–90; PULSE 66–83; RESP 14–18; TEMP 35.9–36.2; O2SAT 90–98; BMI 31.8
--- NOTE | 2025-02-25 08:03 | ANES.PREANE2 ---
Pre-Anesthetic Assessment Height/Weight: Height 1.6 m Operation Date: 02/25/25 10:30 Proposed Procedures p LEFT Shoulder Open Distal Clavicle Resection(Left) - Ana Toledo MD s Shoulder Acromioplasty(Left) - Ana Toledo MD s POSSIBLE Rotator Cuff Repair Shoulder(Left) - MD jeovany Moore Debridement(Left) - Ana Toledo MD Familial anesthetic complications: ALpha gal allergy Was Beta Randall taken within 24 hours: N/A Was Clonidine taken within 24 hours: N/A Last intake: > 8hrs Social No alcohol and No tobacco Exam alert, oriented x 3, clear to auscultation bilaterally and regular rate & rhythm Airway Mallampati: Class III Dentition: full Comments: Comments: large neck and excess submandibular tissues grade i airway in August 2024 Pulmonary Sleep Apnea GI Gastroesophageal Reflux Disease Metabolic Diabetes Mellitus, Morbid Obesity and Thyroid Disease Anesthetic Plan ASA status: 3 Anesthesia: General Risk of > 500 ml blood loss (7ml/kg in children): No Medications/Allergies Home Medications ?Medication ?Instructions ?Recorded ?Confirmed ?Last Taken ?Type epinephrine 0.3 mg/0.3 mL 0.3 ml SUBCUT PRN 10/29/19 02/21/25 Unknown History injection, auto-injector metformin 1,000 mg tablet 1,000 mg PO BID 10/29/19 02/21/25 02/21/25 History atorvastatin 40 mg tablet 40 mg PO DAILY 09/28/21 02/21/25 02/21/25 History buspirone 10 mg tablet 15 mg PO DAILY 09/28/21 02/21/25 02/21/25 History citalopram 20 mg tablet 40 mg PO DAILY 09/28/21 02/21/25 02/21/25 History empagliflozin 25 mg tablet 25 mg PO DAILY #180 tabs 01/04/22 02/21/25 02/21/25 Rx (Jardiance) esomeprazole magnesium 20 mg 20 mg PO DAILY PRN Heartburn 12/14/23 02/21/25 02/21/25 History capsule,delayed release (Nexium) levothyroxine 112 mcg tablet 112 mcg PO DAILY #90 tabs 02/29/24 02/21/25 02/25/25 Rx semaglutide 2 mg/dose (8 mg/3 mL) 2 mg (0.75 mL) SUBCUT Q7D #3 mL 02/29/24 02/21/25 02/15/25 Rx subcutaneous pen injector (Ozempic) prazosin 2 mg capsule 2 mg PO QPM 04/19/24 02/21/25 02/20/25 History tizanidine 4 mg tablet 2 mg PO DAILY PRN insomina 04/19/24 02/21/25 02/20/25 History trazodone 100 mg tablet 50 mg PO DAILY 04/19/24 02/21/25 02/20/25 History sulfamethoxazole 800 1 tab PO BID 5 days #10 tabs 02/22/25 Unknown Rx mg-trimethoprim 160 mg tablet (Bactrim DS) Allergies Allergy/AdvReac Type Severity Reaction Status Date / Time Alpha-Gal Allergy Severe ADR-Gastrointestinal Verified 02/21/25 13:54 (Wgepibnnt-Fbkxc-4,3-Gala Upset [facility] Anesthesia Medical History Tendinopathy of left rotator cuff Acromioclavicular joint arthritis Arthritis of right acromioclavicular joint Weakness of right shoulder Chronic right shoulder pain 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 Hypothyroid Surgical History Hx of hysterectomy Hx of section History of bilateral carpal tunnel release Family History Family/Other Heart disease Psychiatric illness Diabetes Denies family history of CAD (coronary artery disease) Clotting disorder Dementia Hyperlipidemia Chronic kidney disease (CKD) Suicide Anesthesia complication Bleeding disorder Family history of premature coronary artery disease Lung disease Cancer Hypertension Stroke Social History Smoking and tobacco/nicotine status: never used tobacco/nicotine Alcohol intake: current Alcohol intake frequency: few times a month Substance/Drug Use: never Current occupational status: employed Anesthesia Procedures Nerve Block Nerve Block 1: Main Anesthesia: general anesthesia Time Out Performed: Yes Consent: requested by attending/covering physician, from patient, from other, risks and benefits reviewed and patient agrees to proceed Nerve block location: interscalene (L) Anesthesia monitors applied: pulse oximetry, EKG, BP cuff and oxygen Nerve block position: semi sitting Anesthetic Used: ropivicaine 0.5% (20 cc) and with decadron (4 mg) Ultrasound used to: recognize landmarks, visualize and ID brachial plexus, in supraclavicular region and visualize and ID interscalene groove Nerve Stimulator Used?: No Interscalene/Femoral BLK: 2 stimuplex 22 g needle used for position and inplane approach, visualize local anesthetic spread and no vascular puncture identified Injection: neg aspiration of heme Patient Tolerated Procedure: well Complications: none
[2025-02-25] MEDS: ketorolac 30 mg/mL INJ IVP (08:12)
[2025-02-25] MEDS: acetaminophen 1,000 MG/100 ML PIGGYBACK 400 MG IV (08:13)
[2025-02-25] MEDS: sodium chloride 0.9% 1,000 ML 30 ML IV (08:34)
[2025-02-25] MEDS: scopolamine 1 mg PATCH 1 PATCH TRANSDERMA (08:37)
--- NOTE | 2025-02-25 08:58 | PC.NURSE ---
0823, left shoulder block performed by [facility]. using ultrasound guidance, 20 ml of 0.5% ropivicaine was injected. patient tolerated well, images obtained
[2025-02-25] MEDS: ceFAZolin 2,000 mg SDV 2000 MG IVP (09:15)
--- NOTE | 2025-02-25 09:15 | W.PM.OPSUD ---
Surgery/Procedure H&P Update DATE OF PROCEDURE: February 25, 2025 DATE H&P PERFORMED: 02/15/25 H&P UPDATE INFORMATION: I have reviewed H&P completed within last 30 days, I have examined patient prior to procedure, No changes to prior documentation, H&P is in [facility] EMR on date indicated and Risks and benefits of the procedure reviewed PRIMARY INDICATION FOR PROCEDURE: MRI LEFT SHOULDER 1. Moderate AC joint arthritis with mild encroachment upon the supraspinatus tendon. 2. No rotator cuff tear is identified. 3. No rotator cuff muscle atrophy or edema. 4. Small amount of fluid in the rotator cuff interval. 5. Mild tendinopathy in the distal subscapularis tendon. 6. No labral tear identified. Intrasubstance degeneration in the anterior labrum. PLANNED PROCEDURE: Operation Date: 02/25/25 10:30 Proposed Procedures p LEFT Shoulder Open Distal Clavicle Resection(Left) - Ana Toledo MD s Shoulder Acromioplasty(Left) - Ana Toledo MD s POSSIBLE Rotator Cuff Repair Shoulder(Left) - MD jeovany Moore Debridement(Left) - Ana Toledo MD Related Problem List Diagnoses (1) Tendinopathy of left rotator cuff: (2) Acromioclavicular joint arthritis: Qualifiers: Laterality: left Qualified Code(s): M19.012 - Primary osteoarthritis, left shoulder (3) Osteoarthritis of left shoulder: Qualifiers: Osteoarthritis type: primary Qualified Code(s): M19.012 - Primary osteoarthritis, left shoulder (4) Impingement of right shoulder:
[2025-02-25] MEDS: ceFAZolin 1,000 mg SDV 1000 MG IRRIGATION (10:07)
--- NOTE | 2025-02-25 10:54 | P.OP_ITS ---
Operative Report Date of procedure: February 25, 2025 Pre-op diagnosis: Left shoulder severe impingement and acromioclavicular osteoarthritis Post-op diagnosis: Left shoulder severe impingement and acromioclavicular osteoarthritis Post-op findings: Severe osteoarthritis of the left acromioclavicular joint as well as severe impingement on the rotator cuff without rotator cuff tear Procedure done: Left acromioplasty with distal clavicle resection and bursal debridement Implants: None Specimens removed/disposition: None Pathology: None Surgeon: Ana Toledo MD [employer] Supervisor: Aditi Causey, nurse practitioner, who services were required for retraction, exposure, and completion of the surgical procedure Anesthesia: General (Intubated, ASA 3 with preoperative interscalene block) Estimated blood loss (mL): 20 IV fluids (mL): 800 Urine output (mL): 0 (No Jamison) Complications: None Findings: Significant acromioclavicular osteoarthritis and acromial impingement on the rotator cuff with findings consistent with tendinopathy. Condition: stable Disposition: PACU Brief History: This 54-year-old woman presents today for left acromioplasty, evaluation of rotator cuff, and distal clavicle resection. MRI demonstrated findings consistent with severe acromioclavicular osteoarthritis as well as impingement. There was no MRI evidence of rotator cuff tear. Patient previously underwent a similar procedure in August 2024, and she has had excellent results from this. She wished to proceed with operative intervention in the form of acromioplasty, distal clavicle resection, and bursal debridement. Risks and complications were discussed with the patient preoperatively. Consents were signed and questions were answered. Procedure: The patient was brought to the operating theater and underwent general intubated anesthesia, ASA 3. The patient was placed in a beachchair position and subsequently the left upper extremity was prepped and draped in the usual fashion utilizing DuraPrep. The arm was draped free. A surgical pause was performed prior to commencement of the surgical procedure. At the time of the surgical pause, we confirmed the site and side of surgery as well as administration of appropriate preoperative antibiotics Ancef 2 g. MRI was also reviewed at that time. Following the surgical pause, an incision was made at approximately the level of the acromioclavicular joint extending across the anterolateral corner of the acromion and distally as necessary. Care was taken to avoid injury to the axillary nerve by limiting the distal extent of the incision. Dissection continued through skin and soft tissues using a scalpel. Hemostasis was obtained using electrocautery. Soft tissues were elevated off the acromion. An acro mioplasty was then accomplished using a combination of a saw and a power rasp. With this, we were able to remove the significant compression caused by the acromion. The rotator cuff was then evaluated to look for tears. The shoulder was placed through further range of motion to assure there was no evidence of rotator cuff tear. There was no evidence of significant adhesive capsulitis with this manipulation procedure. The acromioclavicular joint was exposed. A saw was then used to resect the distal clavicle without difficulty. The undersurface of the clavicle was palpated and was slightly further debrided. A power rasp was used to further smooth the area. When this was felt to be adequately resected, the wound was irrigated. Attention was then directed to closure. The wound was irrigated and closure was accomplished with 0 Vicryl in the capsular tissues overlying the acromioclavicular joint area as well as over the acromion and down into the deltoid muscle. 2-0 Monocryl was used to close the subcutaneous tissues followed by 4-0 Monocryl subcuticular closure. This was followed by Dermabond, Steri-Strips, and OpSite. The patient was placed in a sling and was returned to the recovery room in satisfactory condition. The patient will be discharged to home to follow-up with me in the office. There were no complications and no specimens. Related Problem List Diagnoses (1) Impingement of left shoulder: (2) Acromioclavicular joint arthritis: (3) Tendinopathy of left rotator cuff:
[2025-02-25] MEDS: HYDROcodone-acetaminophen 5-325 mg Tablet 1 TAB PO (12:02)
--- NOTE | 2025-02-25 12:15 | ANE.PACU2 ---
Inpatient post-anesthesia follow up: Airway intact: Yes Vital signs: Temperature 96.6 F Pulse Rate 71 Respiratory Rate 18 Blood Pressure 136/90 Pulse Oximetry 93 Oxygen Delivery Me thod Room Air Oxygen Flow Rate 6 Fraction of Inspir ed Oxygen Hydration adequate: Yes Nausea and vomiting: No Pain level: 1 Mental status: Baseline
== END 2025-02-25 12:15 | disposition home or self-care (01) ==
PROVIDERS: PCP Nurse Practitioner; Visit Provider Specialist
PROC: (CPT 23120; principal; 2025-02-25 10:10)
PROC: (CPT 23130; 2025-02-25 10:10)
DX: M75.42 Impingement syndrome of left shoulder (principal); M19.012 Primary osteoarthritis, left shoulder; K21.9 Gastro-esophageal reflux disease without esophagitis; E03.9 Hypothyroidism, unspecified; M75.82 Other shoulder lesions, left shoulder; E11.42 Type 2 diabetes mellitus with diabetic polyneuropathy; Z79.899 Other long term (current) drug therapy; Z79.84 Long term (current) use of oral hypoglycemic drugs; Z79.890 Hormone replacement therapy
CPT/HCPCS: 23130; 23120; J0131; J0330; J0690; J1100; J1200; J1885; J2250; J2405; J2704; J2710; J2795; J3010; J3490; J7030; J9999

== ENCOUNTER 2025-03-04 09:33 | Outpatient (CLI) | payer OTHER, SELFPAY ==
--- NOTE | 2025-03-04 09:38 | MM_ITS ---
WS: [id number] BILATERAL SCREENING DIGITAL TOMOSYNTHESIS MAMMOGRAM WITH CAD HISTORY: SCREENING COMPARISON: 11/16/2022, 02/09/2024 Bilateral CC and MLO views with tomosynthesis and synthetic mammography submitted. Computer aided detection analyzed. Breast composition: The breasts are heterogeneously dense, which may obscure small masses. No suspicious masses, microcalcifications or architectural distortion. Bilateral benign calcifications. There is a well-circumscribed superficial mass in the LEFT breast medially. This is within the subcutaneous soft tissue. No suspicious masses or distortion. MM/MM [facility] tomosynthesis [id number] IMPRESSION: BI-RADS: 2 - Benign FOLLOW UP: 1 Year Follow-up
== END 2025-03-04 09:34 | disposition home or self-care (01) ==
PROVIDERS: PCP Nurse Practitioner; Visit Provider Nurse Practitioner
DX: Z12.31 Encounter for screening mammogram for malignant neoplasm of breast (principal); R92.333 Mammographic heterogeneous density, bilateral breasts; R92.1 Mammographic calcification found on diagnostic imaging of breast; N63.20 Unspecified lump in the left breast, unspecified quadrant
CPT/HCPCS: 77063; 77067

== ENCOUNTER → 2025-03-11 11:10 | Outpatient (BNVA) | payer OTHER, SELFPAY | PROVIDERS: PCP Nurse Practitioner; Visit Provider Nurse Practitioner | DX: Z98.890 Other specified postprocedural states (principal) | CPT/HCPCS: 99024 ==

== ENCOUNTER 2025-03-21 09:01 | Outpatient (CLI) | payer OTHER, SELFPAY ==
--- NOTE | 2025-03-21 | ECG_ITS ---
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 Interpretive Statements LEXISCAN SESTAMIBI STRESS TEST Procedure: At the baseline, the blood pressure was 110/72 mmHg with a heart rate of 61 bpm. The electrocardiogram showed normal sinus rhythm, normal axis with normal ST and T's. The Lexiscan was infused over a period of 20 seconds. A total of 0.4 mg of Lexiscan was infused. The stress phase was continued for a total of 5 minutes. Heart rate was at the end of stress phase was 88 bpm and a blood pressure of 111/65 mmHg. The EKG at the peak infusion revealed normal sinus rhythm with no significant ST-T wave changes. Sestamibi was injected 20 seconds after the Lexiscan infusion. Blood pressure at the end of recovery phase was 117/66 mmHg with a heart rate of 81 bpm. Conclusion: 1. Normal EKG response to Lexiscan infusion 2. No Lexiscan induced chest pain or cardiac arrhythmia. 3. Normal blood pressure and heart rate response. 4. Sestamibi/sestamibi perfusion scan pending; see separate report. Electronically Signed On 03-30-2025 12:13:20 CDT by Mayank Ferrari M.D. [email or web address]
[2025-03-21 09:17] VITALS: BMI 31.8
--- NOTE | 2025-03-21 09:20 | NMCV_ITS ---
NM binu perf SPECT r/s* [id number] Cherri Henriquez Age: 54 Gender: F : 1970 Exam Date: 03/21/2025 09:58 Ordering Phys: Eulalia Medeiros Technologist: DRAKE Elena Exam Location: [facility] Indications: CP STRESS TEST [facility] IMAGE PROTOCOL Rest/Stress 1 Lexiscan Day Radiopharmaceutical Dose (mCi) Administration Site Administered by Rest: Tc-99m 10.8 IV DRAKE Elena Sestamibi Stress:Tc-99m 32.8 IV DRAKE Elena Sestamibi Rest: 21-Mar-2025 60 Discovery 630 Stress: 21-Mar-2025 30 Discovery 630 0.4mg Lexiscan. Images obtained in supine and prone position. SPECT RESULTS Technical Quality: Good Raw Data Analysis: Normal Image Corrections: No attenuation or motion correction applied Summed Stress Score: 0 Summed Rest Score: 1 Summed Difference Score: 0 PERFUSION FINDINGS SPECT images demonstrate homogeneous tracer distribution throughout the myocardium. FUNCTIONAL RESULTS (calculated via Gated SPECT) Stress Image LV EF (%): 73 Stress EDV (mL):80 TID: 0.96 Stress ESV (mL):22 FUNCTIONAL FINDINGS: There is normal left ventricular systolic function. IMPRESSIONS 1. Normal myocardial perfusion imaging with no evidence of ischemia 2. LV systolic function is normal Mayank Ferrari MD (Electronically Signed) Final Date: 21 March 2025 14:25 S
[2025-03-21 10:50] VITALS: BP 117/66; PULSE 84
== END 2025-03-21 09:02 | disposition home or self-care (01) ==
LOC: CDL 09:02
PROVIDERS: PCP Nurse Practitioner; Visit Provider Nurse Practitioner
DX: R07.9 Chest pain, unspecified (principal)
CPT/HCPCS: 36415; 78452; 93017; 96374; A9500; J2785

== ENCOUNTER → 2025-04-15 14:00 | Outpatient (BNVA) | payer OTHER, SELFPAY | PROVIDERS: PCP Nurse Practitioner; Visit Provider Nurse Practitioner | DX: Z98.890 Other specified postprocedural states (principal) | CPT/HCPCS: 99213 ==